=== PATIENT | male | born 1945 | race Caucasian/White ===

== ENCOUNTER 2022-04-19 09:24 | Emergency (ER) | payer MEDICARE, SELFPAY ==
[2022-04-19 09:25] VITALS: BP 126/87; PULSE 93; RESP 17; O2SAT 98
--- NOTE | 2022-04-19 09:25 | XRR_ITS ---
PROCEDURE INFORMATION: Exam: XR Left Knee Exam date and time: 04/19/2022 9:28 AM Age: 76 years old Clinical indication: Injury or trauma; Fall; Blunt trauma; Knee; Left TECHNIQUE: Imaging protocol: Radiologic exam of the Left knee. Views: 3 views. COMPARISON: No relevant prior studies available. FINDINGS: Bones/joints: No fracture or other acute bone or joint abnormalities are seen. There is chronic spurring on the patella. The joint spaces are not significantly narrowed. Small joint effusion. There are dystrophic calcifications measuring up to 2 cm in diameter projecting in the quadriceps tendon. Soft tissues: Normal. XR/XR knee LT 3V* [id number] IMPRESSION: 1. Small joint effusion. 2. No acute bony abnormality.
--- NOTE | 2022-04-19 09:31 | W.ED.FALL ---
HPI - Fall General: Chief Complaint: Fall Stated Complaint: LEFT KNEE PAIN S/P FALL Time Seen by Provider: 04/19/22 09:25 Source: patient and EMS Mode of arrival: EMS Limitations: no limitations History of Present Illness: 76-year-old male states that he slipped and fell just prior to arrival he states that he had landed awkwardly on his left leg states he is having some pain in his left knee states he is not able to ambulate he denies hearing a pop he denies any other injuries with the fall. Associated symptoms-after fall: Denies abdominal pain, chest pain or headache(s) Review of Systems Const: Denies: fever(s), chills, body aches or change in appetite Eyes: Denies: blurry vision or eye discomfort ENMT: Denies: throat pain or dental pain Card: Denies: chest pain Resp: Denies: dyspnea GI: Denies: abdominal pain, nausea, vomiting or diarrhea : Denies: dysuria Musc: Reports: extremity pain Skin/Breast: Denies: rash Neuro: Denies: headache(s) Psych: Denies: depression Mike/Lymph: Denies: easy bruising All/Imm: Denies: urticaria Physical Exam Const: COMMON NORMALS: no acute distress and alert HENMT: COMMON NORMALS: normocephalic and atraumatic HEAD & SCALP: normocephalic and atraumatic Eye: COMMON NORMALS: conjunctivae normal CONJUNCTIVA: Yes conjunctivae normal Neck/C-Spine: COMMON NORMALS: supple Chest: COMMONS NORMALS: normal inspection of the chest Resp: COMMON NORMALS: normal respiratory effort Cardio: COMMON NORMALS: regular rate RATE: regular rate GI: INSPECTION: Yes normal to inspection Extremity: OTHER: Some tenderness over left knee he does have an indentation of the above his patella with a possible quadricep tendon tear no knee dislocation distal dorsalis pedis and posterior tib pulses intact Neuro: SENSORIUM/ORIENTATION: Yes alert Psych: COMMON NORMALS: mental status grossly normal Skin: COMMON NORMALS: no rashes or lesions noted GENERAL SKIN EXAM: no rashes or lesions noted Course Vital Signs: Vital signs: Vital Signs Pulse Rate 93 04/19/22 09:25 Respiratory Rate 17 04/19/22 09:25 Blood Pressure 126/87 04/19/22 09:25 Pulse Oximetry 98 04/19/22 09:25 Oxygen Delivery Me thod 04/19/22 09:25 MDM - Fall Medical Decision Making Patient presents with a likely quadricep tendon rupture he has no signs of dislocation or fracture distal pulses intact patient placed in a knee immobilizer he is to use crutches do not bear weight we will get him follow-up with orthopedics. Discharge Plan Discharge Patient Disposition: Home Clinical Impression: Compression fracture Quadriceps tendon rupture Qualifiers: Encounter type: initial encounter Laterality: left Qualified Code(s): S76.112A - Strain of left quadriceps muscle, fascia and tendon, initial encounter Condition: Stable Prescriptions: New hydrocodone-acetaminophen 5-325 mg tablet 1 tab PO Q6H PRN (Reason: pain) Qty: 14 0RF Discharge Orders: Discharge ED (Routine); Ordered 04/19/22 Ordered By: Denver Lin Referrals: Sen Avila MD [Physician] - 1-3 days Discharge Diet: Advance as tolerated Discharge Activity: Limit activity as instructed and Use walker/crutches as instructed Patient Instructions: Pain Management, Quadriceps Tendon Rupture Coding Level of Care 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
[2022-04-19 10:32] VITALS: PULSE 79; O2SAT 98
--- NOTE | 2022-04-21 10:26 | DCPLANNER ---
Addendum entered by Lyndsay Chopra 05/15/22 13:31: Patient had an appointment scheduled with ortho - patient did attend appointment. Addendum entered by Lyndsay Chopra 04/22/22 14:16: Patient has a follow up appointment scheduled for Thursday, April 23, 2022 at 8:[address] Avila at ortho. Clinic will call patient with appointment information. Original Note: pmo manager had message to schedule a follow up appointment for patient with ortho. pmo manager sent patients information to the front office staff at ortho. Patients information will be printed and reviewed. Clinic will call patient with appointment information.
== END 2022-04-19 10:33 | disposition home or self-care (01) ==
PROVIDERS: Emergency Provider Emergency Medicine
DX: S76.112A Strain of left quadriceps muscle, fascia and tendon, initial encounter (principal); T14.8XXA Other injury of unspecified body region, initial encounter; W01.0XXA Fall on same level from slipping, tripping and stumbling without subsequent striking against object, initial encounter
CPT/HCPCS: 29530; 73562; 99283; E0114

== ENCOUNTER → 2022-04-23 08:23 | Outpatient (BNVA) | payer MEDICARE, SELFPAY | PROVIDERS: Referring Provider Emergency Medicine; Visit Provider Orthopaedic Surgery | DX: S76.112A Strain of left quadriceps muscle, fascia and tendon, initial encounter (principal); W00.2XXA Other fall from one level to another due to ice and snow, initial encounter | CPT/HCPCS: 99203 ==

== ENCOUNTER 2022-04-24 11:14 | Day surgery (SDC) | payer MEDICARE, SELFPAY ==
[2022-04-23 17:14] VITALS: BMI 33.0
[2022-04-24] VITALS (10 sets, daily range): BP systolic 120–169; BP diastolic 72–95; PULSE 62–75; RESP 16–18; TEMP 36.1–36.6; O2SAT 97–100
[2022-04-24] MEDS: sodium chloride 0.9% 1,000 ML 30 ML IV (11:56)
--- NOTE | 2022-04-24 12:46 | ANES.PREANE2 ---
Pre-Anesthetic Assessment Height/Weight: Height 1.78 m Weight 104.326 kg Temp Pulse Resp BP Pulse Ox O2 Del Method 97.8 F 62 18 120/72 97 04/24/22 11:55 04/24/22 11:55 04/24/22 11:55 04/24/22 11:55 04/24/22 11:55 04/24/22 11:55 Preop Diagnosis: Rupture left quadriceps tendon Operation Date: 04/24/22 12:45 Proposed Procedures p Tendon Repair Quadriceps(Left) - Sen Avila MD Familial anesthetic complications: none Was Beta Julio taken within 24 hours: N/A Was Clonidine taken within 24 hours: N/A Last intake: Intake Last Liquid Date 04/23/22 Last Liquid Time 20:00 Last Solid Date 04/23/22 Last Solid Time 19:00 Social No alcohol and No tobacco Exam alert, oriented x 3, clear to auscultation bilaterally and regular rate & rhythm Airway Submandibular: within normal limits Cervical ROM: within normal limits Mallampati: Class II Dentition: full CV/HEM Arrythmia (clara) Metabolic Morbid Obesity [facility] Osteoarthritis/DJD Anesthetic Plan ASA status: 2 Anesthesia: General Medications/Allergies Home Medications Medication Instructions Recorded Confirmed Last Taken Type hydrocodone 5 mg-acetaminophen 325 1 tab PO Q6H PRN pain #14 tabs 04/19/22 04/23/22 Unknown Rx mg tablet Allergies Allergy/AdvReac Type Severity Reaction Status Date / Time No Known Allergies Allergy Verified 04/23/22 17:12 Current Medications Generic Name Dose Route Start Last Admin Trade Name Freq PRN Reason Stop Dose Admin Sodium Chloride 1,000 mls @ 30 mls/hr 04/24/22 11:45 04/24/22 11:56 Sodium Chloride 0.9% IV 04/25/22 11:44 30 mls/hr .Q24H CATIA Administration PFSH Anesthesia Social History (Updated 04/23/22 @ 08:38 by Martinez Cohen LPN) Smoking and tobacco status: never smoked Alcohol intake: never Data Anesthesia Cardiac Studies: No Data to Display
--- NOTE | 2022-04-24 13:28 | W.PM.OPSUD ---
Surgery/Procedure H&P Update DATE OF PROCEDURE: April 24, 2022 DATE H&P PERFORMED: 04/23/22 H&P UPDATE INFORMATION: I have reviewed H&P completed within last 30 days PREOP DIAGNOSIS: Rupture left quadriceps tendon PLANNED PROCEDURE: Operation Date: 04/24/22 12:45 Proposed Procedures p Tendon Repair Quadriceps(Left) - Sen Avila MD
[2022-04-24] MEDS: ceFAZolin 2,000 MG in sodium chloride 0.9% (plus) 50 ML 100 MG IV (14:08)
--- NOTE | 2022-04-24 14:36 | PM.OP ---
Operative Report Date of procedure: April 24, 2022 Pre-op diagnosis: Preop Diagnosis Rupture left quadriceps tendon Post-op diagnosis: same Pathology: none sent Surgeon: Sen Avila Anesthesia: General Estimated blood loss (mL): 20 Tourniquet time (min): 27 Findings: The patient had an evulsion of his biceps musculature from the superior patella with axial rents in the medial and lateral retinaculum. There were islands of calcification within the distal quadriceps and thickening of the distal quadriceps consistent with chronic tendinopathy. Condition: stable Disposition: PACU Brief History: The patient is a 76-year-old male who sustained a fall on a flexed knee on a icy deck with disruption of his quadricepss and a loss of active extension. Open repair was chosen to repair the quadriceps and gain full active extension of the knee. Procedure: The patient was taken to the operating room and given a general anesthesia. He was given 2 g of Ancef. He is prepped and draped in the supine position with a tourniquet on the left thigh. The tourniquet was inflated to 300 mmHg. A timeout was performed. An 8 cm long incision was made from the inferior pole the patella proximally. Dissection was carried out full-thickness to the skin to the extensor retinaculum. The patient was noted to have a transverse avulsion of the quadriceps tendon from the superior patella with rents medially and laterally extending into to the medial and lateral retinaculum respectively. Ossicles or calcified bone were identified in the quadriceps tendon which were removed with a scalpel and the tendon was debrided back to clean margins. A rongeur was used to debride the superior patella down to visible trabecular bone. A Ultratape suture was initially run through the central lateral aspect of the tendon exiting and central tendon fixed with locking Krak?w stitches. A second tape suture was brought through the central aspect of the tendon and out the medial aspect locking with Krak?w sutures. 3 drill holes were made in the proximal patella, exiting the distal anterior patella. The 2 central sutures were brought through the central drill hole, the medial sutures through the medial drill hole, and the lateral sutures to the lateral drill hole. The sutures were secured drawing the quadricep tendon down to the superior pole the patella. #1 Ethibond sutures were used to repair rents in the medial and lateral retinaculum and repair the most anterior retinaculum flap down to anterior patella. The subcutaneous tissues were closed with 2-0 STRATAFIX.. The skin was closed a running 4-0 STRATAFIX. Prineo glue was applied. An OpSite was placed. The patient was placed in compressive tube gauze and a knee immobilizer. He was extubated and taken to recovery in stable condition.
--- NOTE | 2022-04-24 15:23 | SUR.PHASEI ---
Approximately 5 minutes after the pt was transferred to Gerardo Guerrero RN in Phase II, he began complaining of pain of a 6/10. I gave him 50mcg of fentanyl while in phase II. He was on the monitor and being watched by Gerardo Guerrero RN.
[2022-04-24] MEDS: HYDROcodone-acetaminophen 5-325 mg Tablet 1 TAB PO (15:53)
--- NOTE | 2022-04-24 16:10 | ANE.PACU2 ---
Inpatient post-anesthesia follow up: Airway intact: Yes Vital signs: Temperature 97.0 F Pulse Rate 67 Respiratory Rate 16 Blood Pressure 166/87 Pulse Oximetry 98 Oxygen Delivery Me thod Room Air Oxygen Flow Rate 4 Fraction of Inspir ed Oxygen Hydration adequate: Yes Nausea and vomiting: No Pain level: 2 Mental status: Baseline
== END 2022-04-24 16:18 | disposition home or self-care (01) ==
PROVIDERS: Visit Provider Orthopaedic Surgery
PROC: (CPT 27385; principal; 2022-04-24 12:25)
DX: S76.112A Strain of left quadriceps muscle, fascia and tendon, initial encounter (principal); W00.0XXA Fall on same level due to ice and snow, initial encounter; E66.01 Morbid (severe) obesity due to excess calories; Z68.33 Body mass index [BMI] 33.0-33.9, adult
CPT/HCPCS: 27385; J0131; J0690; J1100; J2405; J2704; J3010; J3490; J7030

== ENCOUNTER → 2022-05-07 08:46 | Outpatient (BNVA) | payer MEDICARE, SELFPAY | PROVIDERS: Visit Provider Orthopaedic Surgery | DX: Z98.890 Other specified postprocedural states (principal) | CPT/HCPCS: 99024 ==

== ENCOUNTER 2022-05-16 09:33 | Outpatient (RCR) | payer MEDICARE, SELFPAY | END 2022-05-20 23:59 | disposition home or self-care (01) | LOC: SPT 09:33 | PROVIDERS: Visit Provider Orthopaedic Surgery | DX: S76.102D Unspecified injury of left quadriceps muscle, fascia and tendon, subsequent encounter (principal); X58.XXXD Exposure to other specified factors, subsequent encounter | CPT/HCPCS: 97110; 97161 ==

== ENCOUNTER 2022-05-21 06:00 | Outpatient (RCR) | payer MEDICARE, SELFPAY | END 2022-06-20 23:59 | disposition home or self-care (01) | LOC: SPT 06:00 | PROVIDERS: Visit Provider Orthopaedic Surgery | DX: S76.102D Unspecified injury of left quadriceps muscle, fascia and tendon, subsequent encounter (principal); X58.XXXD Exposure to other specified factors, subsequent encounter | CPT/HCPCS: 97110 ==

== ENCOUNTER → 2022-06-04 09:17 | Outpatient (BNVA) | payer MEDICARE, SELFPAY | PROVIDERS: Visit Provider Orthopaedic Surgery | DX: Z47.89 Encounter for other orthopedic aftercare (principal) | CPT/HCPCS: 99024 ==

== ENCOUNTER 2022-06-21 06:00 | Outpatient (RCR) | payer MEDICARE, SELFPAY | END 2022-07-20 23:59 | disposition home or self-care (01) | LOC: SPT 06:00 | PROVIDERS: Visit Provider Orthopaedic Surgery | DX: Z47.89 Encounter for other orthopedic aftercare (principal) | CPT/HCPCS: 97110 ==

== ENCOUNTER → 2022-07-02 10:27 | Outpatient (BNVA) | payer MEDICARE, SELFPAY | PROVIDERS: Visit Provider Nurse Practitioner Family | DX: Z98.890 Other specified postprocedural states (principal) | CPT/HCPCS: 99024; 99213 ==